=== PATIENT | female | born 1975 | race Caucasian/White ===

== ENCOUNTER → 2017-02-16 | Outpatient (CLI) | payer BC ==
[~2017-02-16] MED LIST: ACET-1175 PO; ALD250 PO; ASCA500 PO; ATIVAN PO; CETI10TA84 PO; MULT-506 PO; PREVACID PO; PROVENTIL INH; QVRINH40 INH; SNG10 PO; ZIPSOR PO; [UNRECOGNIZED DRUG - OTHER] PO
== END ==
LOC: C.RDSM 11:52
PROVIDERS: ATTEND Physical Medicine & Rehabilitation Sports Medicine
DX: Z96.652 Presence of left artificial knee joint (principal)

== ENCOUNTER → 2017-08-17 | Outpatient (CLI) | payer BC | END | disposition home or self-care (01) | LOC: C.RDSM 14:33 | PROVIDERS: ATTEND Physical Medicine & Rehabilitation Sports Medicine | DX: Z96.652 Presence of left artificial knee joint (principal); M17.0 Bilateral primary osteoarthritis of knee ==